=== PATIENT | male | born 1990 | race Caucasian/White ===

== ENCOUNTER 2018-12-17 15:30 | Emergency (ER) | payer OTHER ==
[~2018-12-17] VITALS: Ht 177.8 cm; Wt 88.6 kg
[2018-12-17 15:43] VITALS: BP 133/76; TEMP 98.6
[2018-12-17 17:00] VITALS: PULSE 68
== END 2018-12-17 17:01 | disposition home or self-care (01) ==
LOC: COL.ER 15:30
DX: S00.03XA Contusion of scalp, initial encounter (principal); W22.8XXA Striking against or struck by other objects, initial encounter; Y92.59 Other trade areas as the place of occurrence of the external cause